=== PATIENT | male | born 1945 | race Caucasian/White ===

== ENCOUNTER 2023-06-01 13:41 | Emergency (ER) | payer OTHER, SELFPAY ==
[2023-06-01 14:04] VITALS: BP 139/80; PULSE 51; RESP 16; TEMP 36.2; O2SAT 95; BMI 31.9
--- NOTE | 2023-06-01 14:06 | ED_ITS ---
HPI - General Adult General Chief complaint: Skin/Abscess/Foreign Body Stated complaint: Rash under L breast Time Seen by Provider: 06/01/23 14:09 Source: patient Mode of arrival: ambulatory Limitations: no limitations History of Present Illness HPI narrative: Patient is a 78 year old assigned male at with a history of DM presenting to the emergency department today with a rash under his right breast. Patient states that over the last few days he has a rash under his right breast causing pain. Patient denies any dizziness, lightheadedness, abdominal pain, nausea, vomiting, fever, chills, blurry vision, double vision, loss of vision, chest pain, difficulty breathing, shortness of breath, back pain, night sweats, pain with urination, increased urinary frequency, increased urinary urgency, blood in his urine or stool, syncope or a near syncopal episode, recent trauma or falls, bowel incontinence, bladder incontinence, bowel retention, bladder retention, or any other complaints at this time. Patient states that he is vaccinated against shingles. Onset (ago): day(s) Location: chest and right Radiation: non-radiation Severity: mild Severity scale (1-10): 2 Relieving factors: none Exacerbating factors: none Associated symptoms: rash Treatments prior to arrival: none Related Data Previous Rx's Medication Instructions Recorded fluconazole 150 mg tablet 150 mg PO Q3D 2 doses #2 tabs 06/01/23 Allergies Allergy/AdvReac Type Severity Reaction Status Date / Time No Known Allergies Allergy Verified 06/01/23 14:08 Glucocorticoids Allergy Unknown Unknown Uncoded 06/01/23 14:08 Review of Systems 2 Constitutional: Constitutional: Reports no additional constitutional complaints, Denies chills, Denies fever(s) and Denies night sweats Eyes: Eyes: Reports no additional eye complaints, Denies blurry vision, Denies change in vision, Denies diplopia, Denies eye discharge, Denies loss of vision and Denies eye pain ENT: Denies dizziness Cardiovascular: Cardiovascular: Reports no additional cardiovascular complaints, Denies chest pain, Denies lightheadedness, Denies Loss of Consciousness and Denies dyspnea Respiratory: Respiratory: Reports no additional respiratory complaints and Denies dyspnea Gastrointestinal: Gastrointestinal: Reports no additional gastrointestinal complaints, Denies abdominal pain, Denies melena, Denies hematochezia, Denies change in bowel habits and Denies change in stool character Genitourinary: Genitourinary: Reports no additional male genitourinary complaints, Denies hematuria, Denies oliguria, Denies difficulty urinating, Denies dysuria, Denies urinary frequency, Denies urinary hesitancy, Denies urinary incontinence and Denies urinary urgency Musculoskeletal: Musculoskeletal: Reports no additional musculoskeletal complaints, Denies numbness and Denies tingling Integumentary/Breasts: Comments: rash under right breast Neurologic: Denies dizziness, Denies loss of vision, Denies numbness and Denies tingling Psychiatric: Psychiatric: Reports no additional psychiatric complaints Endocrine: Endocrine: Reports no additional endocrine complaints Hematologic/Lymphatic: Hematologic/Lymphatic: Reports no additional hematologic/lymphatic complaints Allergic/Immunologic: Allergic/Immunologic: Reports no additional allergic/immunologic complaints [facility] Past Medical History Attestation statement: The following information was validated with the patient. Source: old records reviewed and nursing notes reviewed Social History Social History Advance Directives: No Physical Exam ED Vital Signs: Vital Signs - 24 hr 06/01/23 14:04 Temperature 97.2 F Pulse Rate 51 Respiratory Rate 16 Blood Pressure 139/80 Pulse Oximetry 95 Oxygen Delivery Method Room Air BMI result Body Mass Index 31.9 Const General: cooperative, no acute distress, alert and awake Nutritional Appearance: well nourished Orientation/consciousness: patient oriented x3 Limitations: no limitations HENMT Head: Yes normal to inspection and Yes atraumatic Ears: hearing grossly normal bilaterally and external ears normal General nose exam: Normal external nose present, no nasal discharge noted and no epistaxis Face and sinus: Yes normal facial exam, No abrasion and No laceration Mouth: Normal oral and palatal mucosa present, no drooling and no muffled voice Eyes General: appearance normal, both eyes and all related structures Periorbital: periorbital findings normal Eyelids: Yes eyelids normal Conjunctivae: conjunctivae normal Pupils: Equal, round and reactive pupils present EOM: EOMs intact bilaterally Neck Neck: Yes normal visual inspection, Yes full ROM and Yes no lymphadenopathy Chest Chest palpation & inspection: normal inspection of the chest Resp Effort & Inspection: normal respiratory effort and able to speak in complete sentences GI Inspection: Yes normal to inspection Skin Full body images: 2 1. yeast type rash present under the right breast - in the fold of the skin Neuro General: patient oriented x3 and moves all extremities Cranial nerves: Yes Equal, round and reactive pupils present Cognition (Neuro): normal cognition Motor exam (neuro): 5/5 motor strength present throughout Sensory Exam: Normal double simultaneous stimulation for sensation Coordination: [id number] test normal Extrem General: Yes normal to inspection, Yes full ROM and Yes capillary refill normal Psych Appearance: grossly normal Mental Status: mental status grossly normal Affect: normal affect Attitude: cooperative Thought process: Normal thought process present Thought content: Normal thought content present Insight: Good insight present (Psych) Medical Decision Making Medical Decision Making MDM Narrative: Patient is a 78 year old assigned male at with a history of DM presenting to the emergency department today with a rash under the right breast. Patient's physical exam was as noted in the physical exam portion of this note. I explained my physical exam findings to the patient. I answered all questions asked by the patient. I stressed the importance of the patient taking his medication as prescribed. I stressed the importance of the patient following up with his primary care provider. I stressed the importance of the patient returning to the emergency department immediately if his symptoms were to worsen or if he were to develop any dizziness, shortness of breath, difficulty breathing, chest pain, blurry vision, loss of vision, nausea, vomiting, abdominal pain, fever, chills, back pain, or any other complaints. Patient verbalized agreement and understanding with this treatment plan and discharge. Differential Diagnosis Differential Diagnoses: The differential diagnosis associated with the presentation includes Yeast infection Rash Shingles Dermatitis Admission/Observation Consideration of admission/observation: Escalation of care including admission/observation considered Patient would have been admitted to the hospital had his clinical presentation warranted hospital admission. Prescription Management I considered prescription management with: Other (patient prescribed an anti- fungal) Discharge Plan Discharge Clinical Impression: Skin yeast infection Patient Disposition: Home, Self-Care Instructions: Skin Yeast Infection (ED) Additional Instructions: You may use Nystatin powder over the counter to the affected area. Follow up with your primary care provider. Return to the emergency department immediately if your symptoms worsen or if you develop any dizziness, shortness of breath, difficulty breathing, chest pain, blurry vision, loss of vision, nausea, vomiting, abdominal pain, fever, chills, back pain, or any other complaints. Prescriptions: New fluconazole 150 mg tablet 150 mg PO Q3D Qty: 2 0RF Referrals: [facility] Family [facility] [Provider Group] (Call to establish and follow up with a primary care provider. If you already have a primary care provider, please follow up with them.) [facility] Primary Care, [place] [Provider Group] (Call to establish and follow up with a primary care provider. If you already have a primary care provider, please follow up with them.) [facility] Primary Care,[place] [Provider Group] (Call to establish and follow up with a primary care provider. If you already have a primary care provider, please follow up with them.) Interventions: ED Discharge Assessment Last Done: 06/01/23 14:11 Discharge Date/Time: 06/01/23 14:17 Print Language: Jamaican
== END 2023-06-01 14:17 | disposition home or self-care (01) ==
LOC: HO.ED 14:17
PROVIDERS: Emergency Provider Emergency Medicine
DX: B37.2 Candidiasis of skin and nail (principal)
CPT/HCPCS: 99282; 99283

== ENCOUNTER 2023-06-10 10:46 | Outpatient (AMB) | payer OTHER, SELFPAY ==
[2023-06-10 10:53] VITALS: BP 119/64; PULSE 74; BMI 32.2
--- NOTE | 2023-06-10 10:53 | A.OFFVIS_ITS ---
Intake Vital Signs 06/10/23 10:53 Height 5 ft 8 in Weight 212 lb BMI 32.2 BP 119/64 Blood Pressure Location Lt brachial Position Sitting Pulse 74 Intake Visit Reasons: Recall colo-HX colostomy-? nodules outer skin Intake Note: This patient presents for a recall colonoscopy screening. Pt c/o; reports no rectal bleeding or blood in stools, reports bleeding lesion on the ring of the previous colostomy site and describes it is about a quarter of an inch in size. [employer] Required: No Accompanied by: Self / Same As Patient Allergies No Known Allergies Allergy (Verified 06/01/23 14:08) Glucocorticoids Allergy (Unknown, Uncoded 06/01/23 14:08) Unknown Medication List - Last Reconciled 06/10/23 by Charles Rocha MD fluconazole 150 mg PO Q3D 2 doses nystatin 1 appl topical DAILY HPI Recall colo-HX colostomy-? nodules outer skin HPI Details 73-year-old male referred for colonoscop y. He has a personal history of colon cancer and had undergone low anterior resection with an end colostomy in [facility] in 1999. His paternal grandfather and father also had history of colon cancer. His last colonoscopy on record was in 2019 here in [facility]. He had diverticulosis at that time. He denies GI complaints. He has a history of DVT in 2018. [facility] Medical History (Updated 06/10/23 @ 10:57 by Charles Rocha MD) Personal history of colon cancer Family History Father Skin cancer Rectal cancer Social History Alcohol intake: never Patient Tobacco Use Status: Never used Tobacco Review of Systems Const Denies chills and Denies fever(s) Card Denies chest pain, Denies dyspnea and Denies dyspnea on exertion Resp Denies cough, Denies dyspnea and Denies dyspnea on exertion GI Denies hematochezia and Denies change in bowel habits Denies hematuria and Denies difficulty urinating Musc Denies back pain and Denies limited range of motion Neuro Denies focal weakness and Denies convulsions Psych Denies depression and Denies mood swings Physical Exam Const Other: Appears obese General: comfortable and no acute distress Orientation/consciousness: patient oriented x3 Neck Neck: Yes no lymphadenopathy Resp Auscultation: clear to auscultation bilaterally Cardio Rhythm: regular rhythm GI Other: Colostomy in place, functioning well Palpation (GI): Soft to palpation, nontender and no guarding Neuro General: patient oriented x3 Assessment & Plan Assessment & Plan (1) Personal history of colon cancer: Code(s): Z85.038 - Personal history of other malignant neoplasm of large intestine Plan: He has a history of rectal cancer and had undergone low anterior resection in 1999. He has had a colostomy since that time. He undergoes a colonoscopy every 5 years. He is due for a follow-up colonoscopy this year. He denies complaints with regards to his GI functions at this time. His colostomy is functioning well. I reviewed with him the technique of anoscopy by the stoma in the rectum. I di scussed the risks including but not limited to bleeding, infections, bowel injury, as well as the benefits and alternatives. He understands and wants to proceed. Coding Level of Care Code New Pt Level 3 (20626) Diagnoses Personal history of colon cancer Z85.038
== END 2023-06-10 11:17 | disposition home or self-care (01) ==
PROVIDERS: PCP Internal Medicine; Referring Provider Internal Medicine; Visit Provider Surgery
DX: Z85.038 Personal history of other malignant neoplasm of large intestine (principal)
CPT/HCPCS: 99203

== ENCOUNTER → 2023-06-10 10:46 | Outpatient (BNVA) | payer OTHER, SELFPAY | PROVIDERS: PCP Internal Medicine; Referring Provider Internal Medicine; Visit Provider Surgery | DX: Z85.038 Personal history of other malignant neoplasm of large intestine (principal) | CPT/HCPCS: 99202 ==

== ENCOUNTER → 2023-07-07 09:03 | Day surgery (SDC) | payer OTHER, SELFPAY ==
[2023-07-03 13:31] VITALS: BMI 32.2
--- NOTE | 2023-07-07 10:26 | PC.NURSE ---
pt also on ozempic, not on his med list initially. colo cancelled due to not stopping for one week. last dose was 07/01. spoke to pt.
== END ==
PROVIDERS: PCP Internal Medicine; Visit Provider Surgery
DX: Z12.11 Encounter for screening for malignant neoplasm of colon (principal); Z53.09 Procedure and treatment not carried out because of other contraindication; Z79.85 Long-term (current) use of injectable non-insulin antidiabetic drugs; Z85.038 Personal history of other malignant neoplasm of large intestine